=== PATIENT | female | born 1960 | race Caucasian/White ===

== ENCOUNTER 2016-10-09 09:20 | Day surgery (SDC) | payer BC ==
[~2016-10-09 09:20] MED LIST: PROPOFOL INJ 200 MG/20 ML VIAL IV ONE
--- NOTE | 2016-10-09 12:23 | Operative Report ---
Operative Report DATE OF SURGERY: 10/09/16 Operative Report: The risks, benefits and alternatives of the procedure including risks of bleeding, perforation requiring surgery are explained to the patient in detail and informed consent is obtained. Patient is brought back to the endoscopy suite. Timeout is called. Propofol sedation is administered. A rectal examination was done which did not reveal any masses, tears or fissures. An Olympus videoscope was inserted into the patient's rectum. Keeping the lumen in site at all times the scope was then gradually advanced all the way to the cecum. The cecum as identified by the usual anatomical landmarks of the ileocecal valve as well as the appendiceal office. Photodocumentation was obtained. Prep is good. The scope was then sequentially pulled back via the various segments of the colon including the ascending colon, hepatic flexure, transverse colon, splenic flexure, descending colon and finally into the rectosigmoid portions of the colon. Retroflexion maneuvers performed. PREOPERATIVE DIAGNOSIS: Colorectal cancer screening. POSTOPERATIVE DIAGNOSIS: Normal Screening colonoscopy. OPERATION: Diagnostic colonoscopy. SURGEON: GINO ZAZUETA ANESTHESIA: LMAC TISSUE REMOVED OR ALTERED: None. COMPLICATIONS: None. ESTIMATED BLOOD LOSS: none. INTRAOPERATIVE FINDINGS: Normal colon without any masses, polyps, diverticulosis or AVMs. PROCEDURE: Patient tolerated the procedure well. No immediate postprocedure complications are noted. Patient is discharged in good condition. Surveillance colonoscopy in 10 years. Date of discharge 10/09/2016. Discharge diet: Regular. Discharge activity: Regular. Patient is instructed to call the office should there be any further problems or questions. She does have a 2-3 week follow-up to discuss any further findings of needed.
[2016-10-09 12:28] VITALS: BP 133/75
== END 2016-10-09 12:20 | disposition home or self-care (01) ==
LOC: END 09:20
PROVIDERS: ATTEND Internal Medicine Gastroenterology
PROC: 0DJD8ZZ Inspection of Lower Intestinal Tract, Via Natural or Artificial Opening Endoscopic (ICD-10-PCS; principal; 2016-10-09 11:30)
DX: Z12.11 Encounter for screening for malignant neoplasm of colon (principal); Z88.5 Allergy status to narcotic agent; R10.84 Generalized abdominal pain
CPT/HCPCS: 45378; J2704; 810

== ENCOUNTER 2020-04-19 11:37 | Day surgery (SDC) | payer BC ==
[~2020-04-19 11:37] MED LIST changes: +CHONDR SU A NA/HYALUR INTRAOC KIT (SURGICARE) ONE; +EPINEPHRINE INJ/PF 1 MG/1 ML AMPULE ONE; +KETOROLAC TROMETHAMINE 0.45% 4 DROP/0.4 ML DROPERETTE OD PRN; +LIDOCAINE 1%/PHENYLEPHRINE 1.5% 1 ML VIAL ONE; -PROPOFOL INJ 200 MG/20 ML VIAL IV ONE
[2020-04-19] MEDS ORDERED: MIDAZOLAM 2 MG/2 ML INJ ONE (11:53)
[2020-04-19] MEDS: TETRACAINE HCL 0.5% OPH SOLN 4 ML OD PRN ×3 (12:21→12:52)
[2020-04-19] MEDS: BESIFLOXACIN HCL 0.6% OPH SUSP 5 ML BOTTLE OD PRN ×4 (12:21→13:10)
[2020-04-19] MEDS: TROPICAMIDE 1% OPH SOLN 15 ML OD PRN ×3 (12:21→12:41)
[2020-04-19] MEDS: CYCLOPENTOLATE 0.2%/PHENYLEPHRINE 1% OPH SOLN 2 ML OD PRN ×3 (12:21→12:41)
[2020-04-19] MEDS: DORZOLAMIDE HCL 2%/TIMOLOL MALEAT 0.5% OPH SOLN 10 ML OD PRN ×2 (13:10)
--- NOTE | 2020-04-19 14:06 | Operative Report ---
Operative Report-[facility] Operative Report: DATE OF SURGERY: April 19, 2020 PREOPERATIVE DIAGNOSIS: NUCLEAR CATARACT, RIGHT EYE. POSTOPERATIVE DIAGNOSIS: NUCLEAR CATARACT, RIGHT EYE. PROCEDURE PERFORMED: PHACOEMULSIFICATION WITH POSTERIOR CHAMBER INTRAOCULAR LENS IMPLANT, RIGHT EYE. SURGEON: Chip Ulloa DO MEDICATIONS AND ANESTHESIA: Versed: IV Versed Tetracaine drops: 1 to 2 drops given as needed COMPLICATION: None INDICATIONS FOR SURGERY: Medical necessity: Best corrected visual acuity worse than 20/40 secondary to cataracts with impairment of ability to carry out needs or desired activities, blurred vision, visual distortion, reduced contrast sensitivity and/or glare with association functional impairment and supporting documentation/testing, and cataracts causing symptomatic impairment of visual functions not corrected with tolerable changes in glasses or contact lenses interfering with activities of daily life. PROCEDURE: Consent: The risks, benefits and alternatives of this procedures was discussed with the patient. The patient read and signed the consent forms, was identified and was seated in the exam chair. IOL: MX 60 E 22.5 IOL Diopters: Phacoemulsification with posterior chamber intraocular lens implant: The face was prepped with 5% povidone iodine solution, and a few drops of 5% povidone iodine solution was instilled into the inferior fornix. A non-fenestrated drape was placed over the eye and the lids were parted with the speculum. A paracentesis was made with a 15 degree blade, and 1% lidocaine MPF followed by viscoelastic was injected into the anterior chamber. A 2.4 mm metal micro- keratome was used to create a temporal clear corneal incision. A circular anterior capsulorrhexis was created, followed by hydro-dissection and hydro- delineation. The phacoemulsification hand piece was inserted and the nucleus was removed with the Phaco chop technique. The irrigation-aspiration hand piece was used to remove the residual cortex, and vacuum the posterior capsule. The capsular bag was inflated and viscoelastic and the above-mentioned IOL was injected into the eye with care to insert both leaning and trailing haptics in the capsular bag. The irrigation/aspiration hand piece was reinserted to remove residual viscoelastic from the capsular bag and anterior chamber. The corneal incision was hydrated, and anterior chamber was inflated with sterile BSS via the paracentesis site, and found to be watertight. Postop medication: 1 drop of prednisolone into operative by followed by 1 drop of Cosopt into operative eye followed by 1 drop of Besivance intraoperative by other:
== END 2020-04-19 13:43 | disposition home or self-care (01) ==
LOC: SC 11:37
PROVIDERS: ATTEND Ophthalmology
DX: H25.11 Age-related nuclear cataract, right eye (principal); Z88.5 Allergy status to narcotic agent
CPT/HCPCS: 66984; V2632; J2250; J3490 ×2; J0171; 142

== ENCOUNTER 2020-05-03 09:27 | Day surgery (SDC) | payer BC ==
[~2020-05-03 09:27] MED LIST changes: -CHONDR SU A NA/HYALUR INTRAOC KIT (SURGICARE) ONE; -EPINEPHRINE INJ/PF 1 MG/1 ML AMPULE ONE; -KETOROLAC TROMETHAMINE 0.45% 4 DROP/0.4 ML DROPERETTE OD PRN; +KETOROLAC TROMETHAMINE 0.45% 4 DROP/0.4 ML DROPERETTE OS PRN; -LIDOCAINE 1%/PHENYLEPHRINE 1.5% 1 ML VIAL ONE
[2020-05-03] MEDS ORDERED: FENTANYL CITRATE INJ/PF 100 MCG/2 ML AMPUL ONE (09:48)
[2020-05-03] MEDS ORDERED: ONDANSETRON HCL INJ/PF 4 MG/2 ML SDV ONE (09:48)
[2020-05-03] MEDS ORDERED: MIDAZOLAM 2 MG/2 ML INJ ONE (09:48)
[2020-05-03] MEDS: TROPICAMIDE 1% OPH SOLN 15 ML OS PRN ×3 (10:10→10:30)
[2020-05-03] MEDS: BESIFLOXACIN HCL 0.6% OPH SUSP 5 ML BOTTLE OS PRN ×4 (10:10→11:03)
[2020-05-03] MEDS: TETRACAINE HCL 0.5% OPH SOLN 4 ML OS PRN ×3 (10:10→10:44)
[2020-05-03] MEDS: CYCLOPENTOLATE 0.2%/PHENYLEPHRINE 1% OPH SOLN 2 ML OS PRN ×3 (10:10→10:30)
[2020-05-03] MEDS: CHONDR SU A NA/HYALUR INTRAOC KIT (SURGICARE) ONE ×2 (10:50→10:53)
[2020-05-03] MEDS: EPINEPHRINE INJ/PF 1 MG/1 ML AMPULE ONE ×2 (10:50→10:53)
[2020-05-03] MEDS: LIDOCAINE 1%/PHENYLEPHRINE 1.5% 1 ML VIAL ONE ×2 (10:50→10:53)
[2020-05-03] MEDS: DORZOLAMIDE HCL 2%/TIMOLOL MALEAT 0.5% OPH SOLN 10 ML OS PRN ×2 (11:03)
--- NOTE | 2020-05-03 12:33 | Operative Report ---
Operative Report-[facility] Operative Report: DATE OF SURGERY: May 03, 2020 PREOPERATIVE DIAGNOSIS: NUCLEAR CATARACT, LEFT EYE. POSTOPERATIVE DIAGNOSIS: NUCLEAR CATARACT, LEFT EYE. PROCEDURE PERFORMED: PHACOEMULSIFICATION WITH POSTERIOR CHAMBER INTRAOCULAR LENS IMPLANT, LEFT EYE. SURGEON: Chip Ulloa DO MEDICATIONS AND ANESTHESIA: Versed: IV Versed Tetracaine drops: 1 to 2 drops given as needed COMPLICATION: None INDICATIONS FOR SURGERY: Medical necessity: Best corrected visual acuity worse than 20/40 secondary to cataracts with impairment of ability to carry out needs or desired activities, blurred vision, visual distortion, reduced contrast sensitivity and/or glare with association functional impairment and supporting documentation/testing, and cataracts causing symptomatic impairment of visual functions not corrected with tolerable changes in glasses or contact lenses interfering with activities of daily life. PROCEDURE: Consent: The risks, benefits and alternatives of this procedures was discussed with the patient. The patient read and signed the consent forms, was identified and was seated in the exam chair. IOL: MX 60 E 19.5 IOL Diopters: Phacoemulsification with posterior chamber intraocular lens implant: The face was prepped with 5% povidone iodine solution, and a few drops of 5% povidone iodine solution was instilled into the inferior fornix. A non-fenestrated drape was placed over the eye and the lids were parted with the speculum. A paracentesis was made with a 15 degree blade, and 1% lidocaine MPF followed by viscoelastic was injected into the anterior chamber. A 2.4 mm metal micro- keratome was used to create a temporal clear corneal incision. A circular anterior capsulorrhexis was created, followed by hydro-dissection and hydro- delineation. The phacoemulsification hand piece was inserted and the nucleus was removed with the Phaco chop technique. The irrigation-aspiration hand piece was used to remove the residual cortex, and vacuum the posterior capsule. The capsular bag was inflated and viscoelastic and the above-mentioned IOL was injected into the eye with care to insert both leaning and trailing haptics in the capsular bag. The irrigation/aspiration hand piece was reinserted to remove residual viscoelastic from the capsular bag and anterior chamber. The corneal incision was hydrated, and anterior chamber was inflated with sterile BSS via the paracentesis site, and found to be watertight. Postop medication:1 drop of prednisolone into operative by followed by 1 drop of Cosopt into operative eye followed by 1 drop of Besivance intraoperative by Other:
== END 2020-05-03 11:36 ==
LOC: SC 09:27
PROVIDERS: ATTEND Ophthalmology
DX: H25.12 Age-related nuclear cataract, left eye (principal); Z98.41 Cataract extraction status, right eye
CPT/HCPCS: 66984; J2250; J3490 ×2; J0171; J3010; J2405; V2632

== ENCOUNTER → 2020-10-27 | Outpatient (CLI) | payer BC ==
[~2020-10-27] MED LIST changes: +COVID-19 VACCINE (PFIZER)/PF 30 MCG/0.3 ML VIAL IM ONE; +EPINEPHRINE INJ/PF 1 MG/1 ML AMPULE IM PRN; -KETOROLAC TROMETHAMINE 0.45% 4 DROP/0.4 ML DROPERETTE OS PRN
== END ==
LOC: EMPHEALTH 15:01
PROVIDERS: ATTEND Internal Medicine
DX: Z23 Encounter for immunization (principal)
CPT/HCPCS: 91300